=== PATIENT | female | born 1980 | race American Indian/Alaskan Native ===

== ENCOUNTER 2017-02-02 19:07 | Emergency (ER) | payer BC ==
[2017-02-02 19:07] VITALS: BMI 32.9
[2017-02-02 19:56] VITALS: BP 136/78; PULSE 78; RESP 18; O2SAT 99
[2017-02-02] MEDS ORDERED: DiphenhydrAMINE 12.5 mg/5 ml LIQ UD (5 ml) PO STA (21:02)
--- NOTE | 2017-02-02 21:05 | ED PDOC ---
Arrival/HPI <Vahid Gtz - Last Filed: 02/02/17 21:27> <Jesus Garza - Last Filed: 02/02/17 21:48> - General Chief Complaint: Bite Time Seen by Provider: 02/02/17 19:41 - History of Present Illness Narrative History of Present Illness (Text): 02/02/17 21:03 This pt is a 36yo F w/ a past medical hx of migraines on imitrex as needed who is coming to the Emergency department after she noticed that her b/l arms were itchy and started to show welts/bites on them. They are present on both arms, and l shoulder. States they are not painful, but are exquisitely itchy. This has never happened before. She states no one at home has them. denies any trouble breathing, shortness of breath, throat closing. Denies fevers/chills, headache, chest pain, abdominal pain, n/v/d dysuria/freq/urg or lower extremity pain/swelling/itching. (Jesus Garza) Past Medical History - Provider Review Nursing Documentation Reviewed: Yes - Travel History Have you recently traveled outside [place] w/in the past 3 mons?: No - Past History Past History: No Previous - Infectious Disease Hx of Infectious Diseases: None - Tetanus Immunization Tetanus Immunization: Unknown - Cardiac Hx Cardiac Disorders: Yes - Pulmonary Hx Respiratory Disorders: Yes - Neurological Hx Neurological Disorder: Yes - HEENT Hx HEENT Disorder: No - Renal Hx Renal Disorder: No - Endocrine/Metabolic Hx Endocrine Disorders: No - Hematological/Oncological Hx Blood Disorders: No - Integumentary Hx Dermatological Disorder: No - Musculoskeletal/Rheumatological Hx Musculoskeletal Disorders: No - Gastrointestinal Hx Gastrointestinal Disorders: No - Genitourinary/Gynecological Hx Genitourinary Disorders: No - Psychiatric Hx Psychophysiologic Disorder: No Hx Substance Use: No - Surgical History Hx Hysterectomy: Yes <Jesus Garza - Last Filed: 02/02/17 21:48> Family/Social History - Physician Review Nursing Documentation Reviewed: Yes Family/Social History: No Known Family HX Smoking Status: Former Smoker Hx Alcohol Use: Yes Hx Substance Use: No <Jesus Garza - Last Filed: 02/02/17 21:48> Allergies/Home Meds <Vahid Gtz - Last Filed: 02/02/17 21:27> <Jesus Garza - Last Filed: 02/02/17 21:48> Allergies/Adverse Reactions: Allergies No Known Allergies Allergy (Verified 02/02/17 21:19) Home Medications: Home Meds Medication Instructions Recorded Confirmed SUMAtriptan [Imitrex Tab] 25 mg PO DAILY PRN 02/02/17 02/02/17 Topiramate [Topamax] 50 mg PO DAILY 02/02/17 02/02/17 Review of Systems - Review of Systems Constitutional: Normal. absent: Fatigue Eyes: Normal. absent: Vision Changes ENT: Normal. absent: Hearing Changes Respiratory: Normal. absent: SOB, Cough, Sputum Cardiovascular: Normal. absent: Chest Pain, Palpitations, Edema Gastrointestinal: Normal. absent: Abdominal Pain, Stool Changes, Constipation, Diarrhea, Nausea Genitourinary Female: Normal. absent: Dysuria, Frequency Musculoskeletal: Normal. absent: Arthralgias, Back Pain Skin: Normal, Rash, Pruritis, Skin Lesions (bug bites on b/l arms) Neurological: Normal <DaniaTyradanielJesus will - Last Filed: 02/02/17 21:48> Physical Exam Temperature: Afebrile Blood Pressure: Normal Pulse: Regular Respiratory Rate: Normal Appearance: Positive for: Well-Appearing, Non-Toxic, Comfortable Pain Distress: None Mental Status: Positive for: Alert and Oriented X 3 - Systems Exam Head: Present: Atraumatic, Normocephalic Pupils: Present: PERRL Extroacular Muscles: Present: EOMI Conjunctiva: Present: Normal Ears: Present: Normal Mouth: Present: Moist Mucous Membranes Neck: Present: Normal Range of Motion. No: Meningeal Signs Respiratory/Chest: Present: Clear to Auscultation, Good Air Exchange. No: Respiratory Distress, Accessory Muscle Use Cardiovascular: Present: Regular Rate and Rhythm, Normal S1, S2. No: Murmurs Abdomen: Present: Normal Bowel Sounds. No: Tenderness, Distention, Peritoneal Signs Upper Extremity: Present: Normal Inspection. No: Cyanosis Lower Extremity: No: Normal Inspection (there are large 2cm x 2cm what appear to be spider bites on b/l arms and l shoulder; itchy, not painful to palpation; raised and red), Edema Neurological: Present: GCS=15, CN II-XII Intact, Speech Normal Psychiatric: Present: Alert, Oriented x 3 <Jesus Garza - Last Filed: 02/02/17 21:48> Vital Signs Pulse Resp BP Pulse Ox 02/02/17 19:53 78 18 136/78 99 Medical Decision Making <Vahid Gtz - Last Filed: 02/02/17 21:27> <Jesus Garza - Last Filed: 02/02/17 21:48> ED Course and Treatment: Impression: Pt seen and evaluated with medical stenographer. Pt, whose past medical history includes migraines, presented for bilateral upper extremity pruritis with insect bites to the area. Aware and agree with HPI, clinical findings, plan, and management. Plan: -- Benadryl -- Reassess and disposition (Vahid Gtz) 02/02/17 21:36 Patient feels better after the benadryl and is wishing to go to work patient advised to wash all of her sheets on extremely hot setting and dry on extremely high setting as well advised to take benadryl as needed for itchiness and advised that it will make her drowsy and to not drive on this medication until she knows how it will affect her advised that if the rash continues to spread, pop open, or becomes infected to come back to the hospital the patient is stable for discharge (Jesus Garza) - Medication Orders Current Medication Orders: Discontinued Medications Diphenhydramine HCl (Benadryl) 25 mg PO STAT STA Stop: 02/02/17 21:10 Last Admin: 02/02/17 21:12 Dose: 25 mg - PA / VOCATIONAL REHABILITATION SPECIALIST / Resident Statement PLACIDO has reviewed & agrees with the documentation as recorded. PLACIDO has examined the patient and agrees with the treatment plan. <Vahid Gtz - Last Filed: 02/02/17 21:27> Disposition/Present on Arrival <Vahid Gtz - Last Filed: 02/02/17 21:27> - Present on Arrival Any Indicators Present on Arrival: No History of DVT/PE: No History of Uncontrolled Diabetes: No Urinary Catheter: No History of Decub. Ulcer: No History Surgical Site Infection Following: None - Disposition Have Diagnosis and Disposition been Completed?: Yes Disposition Time: 21:37 Patient Plan: Discharge <Jesus Garza - Last Filed: 02/02/17 21:48> - Disposition Diagnosis: Spider bite Disposition: HOME/ ROUTINE Condition: GOOD Discharge Instructions (ExitCare): Insect Bite or Sting (ED) Prescriptions: DiphenhydrAMINE [Benadryl] 25 mg PO Q8H PRN #25 cap PRN Reason: Itchiness Hydrocortisone [Cortisone] 56 gm TP DAILY PRN #1 tub PRN Reason: itchiness Referrals: [facility] Cielo Gerber, [Primary Care Provider] - Follow up with primary
== END 2017-02-02 21:50 | disposition home or self-care (01) ==
LOC: ED 19:07
DX: S40.861A Insect bite (nonvenomous) of right upper arm, initial encounter (principal); S40.862A Insect bite (nonvenomous) of left upper arm, initial encounter; S40.262A Insect bite (nonvenomous) of left shoulder, initial encounter; W57.XXXA Bitten or stung by nonvenomous insect and other nonvenomous arthropods, initial encounter; Y92.9 Unspecified place or not applicable

== ENCOUNTER 2017-07-10 00:23 | Emergency (ER) | payer BC ==
[2017-07-10 00:24] VITALS: BMI 32.9
--- NOTE | 2017-07-10 00:36 | ED PDOC ---
Arrival/HPI - General Time Seen by Provider: 07/10/17 00:36 Historian: Patient - History of Present Illness Narrative History of Present Illness (Text): 07/10/17 00:36 37 y/o female, pmh including tonsillitis, nkda, c/o throat pain started today. Aching pain, aggravated by swallowing, no night sweat, no coughing, no drooling , no abdominal or pelvic pain, no urinary symptoms, no pain turning the neck, no other medical or psychological complaints. Past Medical History - Provider Review Nursing Documentation Reviewed: Yes - Past History Past History: No Previous - Infectious Disease Hx of Infectious Diseases: None - Tetanus Immunization Tetanus Immunization: Unknown - Cardiac Hx Cardiac Disorders: Yes - Pulmonary Hx Respiratory Disorders: Yes - Neurological Hx Neurological Disorder: Yes - HEENT Hx HEENT Disorder: No - Renal Hx Renal Disorder: No - Endocrine/Metabolic Hx Endocrine Disorders: No - Hematological/Oncological Hx Blood Disorders: No - Integumentary Hx Dermatological Disorder: No - Musculoskeletal/Rheumatological Hx Musculoskeletal Disorders: No - Gastrointestinal Hx Gastrointestinal Disorders: No - Genitourinary/Gynecological Hx Genitourinary Disorders: No - Psychiatric Hx Psychophysiologic Disorder: No Hx Substance Use: No - Surgical History Hx Hysterectomy: Yes Family/Social History - Physician Review Nursing Documentation Reviewed: Yes Family/Social History: Unknown Family HX Smoking Status: Former Smoker Hx Alcohol Use: Yes Hx Substance Use: No Allergies/Home Meds Allergies/Adverse Reactions: Allergies No Known Allergies Allergy (Verified 07/10/17 00:35) Review of Systems - Review of Systems Constitutional: absent: Fatigue, Fevers Eyes: absent: Vision Changes ENT: Sore Throat. absent: Hearing Changes Respiratory: absent: SOB, Cough Cardiovascular: absent: Chest Pain, Syncope Gastrointestinal: absent: Abdominal Pain, Nausea, Vomiting Musculoskeletal: absent: Arthralgias, Myalgias Skin: absent: Rash, Pruritis Neurological: absent: Headache, Dizziness Physical Exam Vital Signs Reviewed: Yes Vital Signs Temp Pulse Resp BP Pulse Ox 07/10/17 00:36 97.8 F 85 18 129/96 H 97 Temperature: Afebrile Blood Pressure: Hypertensive Pulse: Regular Respiratory Rate: Normal Appearance: Positive for: Well-Appearing, Non-Toxic, Comfortable Pain Distress: Mild Mental Status: Positive for: Alert and Oriented X 3 - Systems Exam Head: Present: Atraumatic, Normocephalic Pupils: Present: PERRL Extroacular Muscles: Present: EOMI Conjunctiva: Present: Normal Ears: Present: NORMAL TM, Normal Canal. No: Erythema Mouth: Present: Moist Mucous Membranes Pharnyx: Present: ERYTHEMA. No: EXUDATE, TONSILS ENLARGED, Uvular Deviation, Muffled/Hoarse Voice, Strider, Soft Palate/Uvular Edema Nose (External): Present: Atraumatic. No: Abrasion, Contusion Nose (Internal): Present: Normal Inspection, No Active Bleeding. No: Rhinorrhea , Septal Deviation, Septal Hematoma, Epistaxis Neck: Present: Normal Range of Motion, Trachea Midline. No: MIDLINE TENDERNESS , Lymphadenopathy Respiratory/Chest: Present: Clear to Auscultation, Good Air Exchange. No: Respiratory Distress, Accessory Muscle Use, Wheezes, Decreased Breath Sounds, Rales, Retracting, Rhonchi, Tachypneic Cardiovascular: Present: Regular Rate and Rhythm, Normal S1, S2. No: Murmurs Abdomen: Present: Normal Bowel Sounds. No: Tenderness, Distention, Peritoneal Signs, Rebound, Guarding Back: Present: Normal Inspection Upper Extremity: Present: Normal Inspection. No: Cyanosis, Edema Lower Extremity: Present: Normal Inspection. No: Edema Neurological: Present: GCS=15, Speech Normal, Motor Func Grossly Intact, Gait Normal, Memory Normal Skin: Present: Warm, Dry, Normal Color. No: Rashes Psychiatric: Present: Alert, Oriented x 3, Normal Insight, Normal Concentration Medical Decision Making ED Course and Treatment: 07/10/17 00:50 -Amoxicillin solution as patient preferred. -Discharge home with amoxicillin, continue tylenol at home, bed rest, follow up with your own pmd and ENT within 2 days, return to the ER for any new or worsening signs or symptoms. - Medication Orders Current Medication Orders: Discontinued Medications Amoxicillin (Amoxil 250 Mg/5 Ml Susp) 875 mg PO STAT STA PRN Reason: Protocol Stop: 07/10/17 00:48 Last Admin: 07/10/17 01:26 Dose: 875 mg - PA / MANAGER OF ORGANIZATIONAL DEVELOPMENT / Resident Statement /DO has reviewed & agrees with the documentation as recorded. Disposition/Present on Arrival - Present on Arrival Any Indicators Present on Arrival: No History of DVT/PE: No History of Uncontrolled Diabetes: No Urinary Catheter: No History of Decub. Ulcer: No History Surgical Site Infection Following: None - Disposition Have Diagnosis and Disposition been Completed?: Yes Diagnosis: Pharyngitis Disposition: HOME/ ROUTINE Disposition Time: 00:51 Patient Plan: Discharge Condition: GOOD Additional Instructions: -Discharge home with amoxicillin, continue tylenol at home, bed rest, follow up with your own pmd and ENT within 2 days, return to the ER for any new or worsening signs or symptoms. Prescriptions: Amoxicillin 10.5 ml PO BID #210 ml Referrals: Jasbir Moss DO [Staff Provider] - Follow up with primary [facility] at [facility] [place] [Outside] - Follow up with primary Forms: WORK NOTE
[2017-07-10 00:45] VITALS: RESP 18; TEMP 97.8; O2SAT 97
[2017-07-10] MEDS ORDERED: Amoxicillin 250 mg/5 ml Susp (150 ml) PO STA (00:47)
[2017-07-10 02:02] VITALS: BP 127/85; PULSE 82
== END 2017-07-10 01:27 | disposition home or self-care (01) ==
LOC: ED 00:23
DX: J02.9 Acute pharyngitis, unspecified (principal)